=== PATIENT | female | born 1970 | race Two or more races ===

== ENCOUNTER 2021-02-05 03:05 | Emergency (ER) | payer OTHER ==
[~2021-02-05] VITALS: Ht 170.2 cm; Wt 70.3 kg
[2021-02-05] MEDS ORDERED: PROAIR RESPICL90 MCG IH (03:35)
[2021-02-05] MEDS ORDERED: ALVESCO6.1 G1 IH (03:35)
[2021-02-05] MEDS ORDERED: GRALISE600 MG PO (03:36)
== END 2021-02-05 16:10 | disposition home or self-care (01) ==
LOC: ER 03:05
DX: U07.1 COVID-19 (principal); R05.9 Cough, unspecified